=== PATIENT | male | born 1965 | race Caucasian/White ===

== ENCOUNTER 2020-07-01 07:57 | Emergency (ER) | payer OTHER ==
[~2020-07-01] VITALS: Ht 187.9 cm; Wt 106.6 kg
[~2020-07-01 07:57] MED LIST: ALLOPURINOL; CYCLOBENZAPRINE5 M3 PO; HYDROCODONE BIT1 T11 PO; KENALOG0.1% TP; LISINOPRIL PO; LISINOPRIL-HYDR1 TA1 PO; LISINOPRIL10 M1 PO; MEDROL DOSEPAK4 MG PO; Motrin,Rufen800 MG PO
[2020-07-01] MEDS ORDERED: ALLOPURINOL300 MG PO (08:22)
[2020-07-01] MEDS ORDERED: COLCHICINE0.6 M2 PO (08:22)
== END 2020-07-01 08:30 | disposition home or self-care (01) ==
LOC: ED 07:57
DX: M10.9 Gout, unspecified (principal); I10 Essential (primary) hypertension; Z79.899 Other long term (current) drug therapy

== ENCOUNTER 2025-05-08 17:43 | Emergency (ER) | payer SELFPAY ==
[~2025-05-08] VITALS: Ht 190.5 cm; Wt 115.7 kg
[~2025-05-08 17:43] MED LIST changes: +ALLOPURINOL300 MG PO; +COLCHICINE0.6 M2 PO
[2025-05-08] MEDS ORDERED: Tdap Vaccine 0.5 ML SYR (Adult Vaccine) IM ONE (18:00)
[2025-05-08] MEDS ORDERED: SILVER NITRATE APPLICATOR 1 EACH APP T ONE ×2 (18:00→18:31)
[2025-05-08] MEDS ORDERED: AMOX-CLAV 875-1 EACH PO (18:24)
[2025-05-08] MEDS ORDERED: LOPRESSOR25 MG PO (18:24)
[2025-05-08] MEDS ORDERED: Gelatin Sponge 1 EACH SPON T ONE (18:55)
== END 2025-05-08 19:04 | disposition home or self-care (01) ==
LOC: ED 17:43
DX: S11.95XA Open bite of unspecified part of neck, initial encounter (principal); I16.0 Hypertensive urgency; W54.0XXA Bitten by dog, initial encounter; Y93.89 Activity, other specified; Y92.89 Other specified places as the place of occurrence of the external cause; Y99.8 Other external cause status

== ENCOUNTER 2025-05-08 20:40 | Emergency (ER) | payer SELFPAY ==
[~2025-05-08 20:40] MED LIST changes: +AMOX-CLAV 875-1 EACH PO; +LOPRESSOR25 MG PO
[2025-05-08] MEDS ORDERED: TRANEXAMIC ACID 1,000 MG/10 ML VIAL T ONE (21:00)
[2025-05-08] MEDS ORDERED: Bacitracin Zinc 14 GM TUBE T ONE (22:50)
== END 2025-05-08 22:52 | disposition home or self-care (01) ==
LOC: ED 20:40
DX: S11.93XA Puncture wound without foreign body of unspecified part of neck, initial encounter (principal); W54.0XXA Bitten by dog, initial encounter; Y93.89 Activity, other specified; Y92.89 Other specified places as the place of occurrence of the external cause; Y99.8 Other external cause status